=== PATIENT | male | born 1935 | race Caucasian/White ===

== ENCOUNTER → 2023-05-21 11:55 | Outpatient (REF) | payer MEDICARE, SELFPAY ==
[2023-05-21 19:12] LABS: % Basophils 0.8 % (0-2); % Eosinophils 2.6 % (0-6); % Immature Granulocytes 0.3 % (0-0.5); % Lymphocytes 21.9 % (20.5-51.1); % Monocytes 10.3 % (1.7-9.3); % Neutrophils 64.1 % (42.2-75.2); Absolute Basophils 0.1 10^3/uL (0-0.2); Absolute Eosinophils 0.2 10^3/uL (0-0.7); Absolute Lymphocytes 1.7 10^3/uL (1.2-3.4); Absolute Monocytes 0.8 10^3/uL (0.1-0.6); Absolute Neutrophils 5.1 10^3/uL (1.4-6.5); Hemoglobin 12.4 g/dL (13.0-18.0); Mean Corpuscular Hgb 29.2 pg (27.0-31.0); Mean Corpuscular Volume 94.1 fL (80.0-94.0); Mean Platelet Volume 11.1 fL (7.4-10.4); Nucleated Red Blood Cells % 0 % (-); Platelet Count 259 10^3/uL (130-400); Red Blood Cell Count 4.25 10^6/uL (4.70-6.10); Red Cell Dist. Width 14.8 % (11.5-14.5)
[2023-05-21 19:27] LABS: ALT (SGPT) 15 U/L (0-50); AST (SGOT) 23 U/L (17-59); Albumin 4.1 g/dl (3.5-5.0); Alkaline Phosphatase 90 U/L (38-126); Blood Urea Nitrogen 32 mg/dl (9-20); Calcium 9.3 mg/dl (8.4-10.2); Carbon Dioxide 27 mmol/L (22-30); Glucose 84 mg/dl (70-99); Total Bilirubin 0.6 mg/dl (0.2-1.3); Total Protein 7.4 g/dl (6.3-8.2); eGFR 45.06
[2023-05-21 19:39] LABS: Chloride 105 mmol/L (98-107); Potassium 5.5 mmol/L (3.5-5.1); Sodium 137 mmol/L (135-145)
== END ==
LOC: CLAB 11:55
PROVIDERS: ATTENDING PHYSICIAN Family Medicine
DX: M25.473 Effusion, unspecified ankle (principal); I10 Essential (primary) hypertension; Q61.3 Polycystic kidney, unspecified; I12.9 Hypertensive chronic kidney disease with stage 1 through stage 4 chronic kidney disease, or unspecified chronic kidney disease; N18.32 Chronic kidney disease, stage 3b
CPT/HCPCS: 36415; 80053; 85025

== ENCOUNTER → 2023-06-06 13:45 | Outpatient (REF) | payer MEDICARE, SELFPAY | LOC: RAD 13:45 | PROVIDERS: ATTENDING PHYSICIAN Physician Assistant Medical; FAMILY PHYSICIAN Family Medicine | DX: M79.89 Other specified soft tissue disorders (principal); M25.561 Pain in right knee; M79.661 Pain in right lower leg | CPT/HCPCS: 73564; 93971 ==